=== PATIENT | female | born 1985 | race Caucasian/White ===

== ENCOUNTER 2017-09-14 01:11 | Emergency (ER) | payer BC, OTHER ==
[2017-09-14 01:18] VITALS: TEMP 98.4; O2SAT 100
[2017-09-14] MEDS ORDERED: ONDANSETRON 4 MG/2 ML VIAL ONE (01:45)
[2017-09-14] MEDS ORDERED: ONDANSETRON 4 MG/2 ML VIAL IVP ONE (01:46)
[2017-09-14] MEDS ORDERED: NS 1,000 ML IV ONE (01:46)
--- NOTE | 2017-09-14 01:46 | EDPHY ---
H & P Stated Complaint: N and V and D since 2100 tonight, abd cramps Time Seen by Provider: 09/14/17 01:36 HPI/ROS: Chief Complaint: Nausea, vomiting, diarrhea HPI: 31-year-old healthy woman started having nausea vomiting and diarrhea at about 9 o'clock tonight. Patient states she has felt a little queasy all day. After vomiting started having some abdominal cramps. No known food exposures. No ill she is knows as been sick. No coffee grounds or blood in her vomit. No black tarry stools or blood. She has had multiple episodes of vomiting and diarrhea. She is not able to keep any fluids down. She is feeling little bit shaky and mildly short of breath. No cough. No measured fevers at home. Last menstrual period was a week ago. ROS: 10 point Review of Systems is negative except as noted in the HPI. PMH: Denies Social History: No smoking, occasional alcohol, occasional marijuana Family History: non-contributory Physical Exam: Gen: Awake, Alert, No Distress HEENT: Nose: no rhinorrhea Eyes: PERRLA, EOMI Mouth: Moist mucosa Neck: Supple, no JVD Chest: nontender, lungs clear to auscultation Heart: S1, S2 normal, no murmur Abd: Soft, non-tender, no guarding Back: no CVA tenderness, no midline tenderness Ext: no edema, non-tender Skin: no rash Neuro: CN II-XII intact, Sensation grossly intact, Strength 5/5 in bilateral upper and lower extremities - Personal History LMP (Females 10-55): 1-7 Days Ago Current Tetanus/Diphtheria Vaccine: Yes Tetanus Vaccine Date: W/I 10 YRS - Medical/Surgical History Hx Asthma: No Hx Chronic Respiratory Disease: No Hx Diabetes: No Hx Cardiac Disease: No Hx Renal Disease: No Hx Cirrhosis: No Hx Alcoholism: No Hx HIV/AIDS: No Hx Splenectomy or Spleen Trauma: No Other PMH: NONE - Social History Smoking Status: Never smoked Constitutional: Initial Vital Signs Temperature (C) 36.9 C 09/14/17 01:16 Heart Rate 103 H 09/14/17 01:16 Respiratory Rate 20 09/14/17 01:16 Blood Pressure 111/60 09/14/17 01:16 O2 Sat (%) 100 09/14/17 01:16 O2 Delivery Mode Room Air Allergies/Adverse Reactions: caterpillars Allergy (Uncoded 01/13/15 16:02) Home Medications: Medication Instructions Recorded Ondansetron Odt [Zofran Odt 4 mg 4 mg PO Q4 PRN #10 tab 09/14/17 (*)] Medical Decision Making - Data Points Laboratory Results: Laboratory Results 09/14/17 01:30 09/14/17 09/14/17 01:30 01:30 Sodium 142 mEq/L mEq/L (134-144) Potassium 3.5 mEq/L mEq/L (3.5-5.2) Chloride 108 mEq/L mEq/L (97-110) Carbon Dioxide 20 mEq/l L mEq/l (22-31) Anion Gap 14 mEq/L mEq/L (8-16) BUN 18 mg/dL mg/dL (7-23) Creatinine 0.8 mg/dL mg/dL (0.6-1.0) Estimated GFR > 60 Glucose 111 mg/dL H mg/dL (70-100) Calcium 9.5 mg/dL mg/dL (8.5-10.4) Beta HCG, Qual NEGATIVE Medications Given: Discontinued Medications Sodium Chloride (Ns) 1,000 mls @ 0 mls/hr IV ONCE ONE; Wide Open PRN Reason: Protocol Stop: 09/14/17 01:47 Last Admin: 09/14/17 01:47 Dose: 1,000 mls Ondansetron HCl (Zofran) 4 mg IVP EDNOW ONE Stop: 09/14/17 01:47 Last Admin: 09/14/17 01:47 Dose: 4 mg Departure - Departure Disposition: Home, Routine, Self-Care Clinical Impression: Acute gastroenteritis Condition: Good Instructions: Ondansetron (By mouth, Into the mouth), Gastroenteritis (ED) Additional Instructions: You may take Zofran 4 mg every 6-8 hours as needed for nausea or vomiting. Make sure to drink plenty of fluids. Follow up with primary care physician in 2-3 days if not improved. Return to the emergency depart for uncontrolled nausea vomiting, worsening abdominal pain, fevers, chills, or any other concerns. Referrals: Jie Alicia PA [Primary Care Provider] - As per Instructions Prescriptions: Ondansetron Odt [Zofran Odt 4 mg (*)] 4 mg PO Q4 PRN #10 tab PRN Reason: nausea
[2017-09-14 02:12] LABS: ANION GAP 14 mEq/L (8-16); CALCIUM 9.5 mg/dL (8.5-10.4); CARBON DIOXIDE 20 mEq/l (22-31); CHLORIDE 108 mEq/L (97-110); CREATININE 0.8 mg/dL (0.6-1.0); GLOMERULAR FILTRATION RATE > 60; GLUCOSE 111 mg/dL (70-100); POTASSIUM 3.5 mEq/L (3.5-5.2); SODIUM 142 mEq/L (134-144)
[2017-09-14] MEDS ORDERED: ONDANSETRON 4MG PREPACK#2 BTL TAKEHOME ONE (03:13)
[2017-09-14 03:25] VITALS: BP 106/72; PULSE 78; RESP 16
== END 2017-09-14 03:24 | disposition home or self-care (01) ==
DX: K52.9 Noninfective gastroenteritis and colitis, unspecified (principal); E86.9 Volume depletion, unspecified
CPT/HCPCS: 96374; J2405